=== PATIENT | male | born 1950 | race Two or more races ===

== ENCOUNTER 2017-12-04 03:43 | Emergency (ER) | payer MEDICARE, MEDICAID ==
[~2017-12-04] VITALS: Ht 162.6 cm; Wt 75.3 kg
--- NOTE | 2017-12-04 03:46 | Emergency Room Report ---
History of Present Illness General Chief Complaint: Dyspnea/Respdistress Source: Patient Present Illness HPI Patient is a 67-year-old male presented after increased difficulty breathing. Patient acute onset of symptoms approximately four hours prior to arrival. Patient reports having increased the discomfort with respirations. He had been taking albuterol without any relief.The patient not been vomiting. He reports having increased chest discomfort. Allergies: Coded Allergies: No Known Allergies (Unverified , 12/04/17) Patient History Past Medical History: see triage record Reviewed Nursing Documentation: PMH: Agreed; PSxH: Agreed Nursing Documentation-PMH Hx Hypertension: Yes Hx Asthma: Yes Review of Systems All Other Systems: negative except mentioned in HPI Physical Exam Vital Signs Date Time Temp Pulse Resp B/P (MAP) Pulse Ox O2 Delivery O2 Flow Rate FiO2 12/04/17 03:39 99.0 90 18 163/70 100 Room Air 99.0 Sp02 EP Interpretation: reviewed, normal General Appearance: normal inspection, alert, GCS 15, mild distress Head: atraumatic ENT: normal ENT inspection, hearing grossly normal, normal voice Neck: normal inspection, full range of motion, supple, no bony tend Respiratory: normal inspection, lungs clear, no retraction, wheezing Cardiovascular #1: regular rate, rhythm, no edema Gastrointestinal: normal inspection, normal bowel sounds, non tender, soft, no guarding, no hernia Genitourinary: no CVA tenderness Musculoskeletal: normal inspection, back normal, normal range of motion Neurologic: normal inspection, alert, oriented x3, responsive, equipment analyst III-XII nml as tested, speech normal Psychiatric: normal inspection, judgement/insight normal, mood/affect normal Skin: normal inspection, normal color, no rash Medical Decision Making Diagnostic Impression: Primary Impression: Acute renal failure Additional Impressions: Respiratory distress Acidosis ER Course Patient presented for shortness of breath.Differential included but was not limited to anemia, pneumonia, pneumothorax, myocardial infarction, pericardial effusion, congestive heart failure, acidosis. Because of complexity of patient' s case laboratory testing and imaging studies were ordered.The patient was noted to have the metabolic acidosis with the markedly elevation of the patient' s creatinine. The patient was given breathing treatments as well as IV steroids the patient was noted to have some improvement in his symptoms in terms of his breathing. Patient stated that he had been urinating normally.I informed the patient that he should be admitted to the hospital for further evaluation of his acidosis as well as as medical management of the elevated creatinine and possible dialysis. The patient was advised risk benefits alternatives of leaving AGAINST MEDICAL ADVICE and he indicated understanding and all questions are answered patient still continued want to leave and signed AGAINST MEDICAL ADVICE. Despite risks including but not limited to disability and worsening of current lifestyle. Patient is advised to return if he changes mind. Labs Test 12/04/17 04:14 12/04/17 04:55 White Blood Count 5.6 K/UL (4.8-10.8) Red Blood Count 4.50 M/UL (4.70-6.10) Hemoglobin 13.0 G/DL (14.2-18.0) Hematocrit 38.6 % (42.0-52.0) Mean Corpuscular Volume 86 FL (80-99) Mean Corpuscular Hemoglobin 29.0 PG (27.0-31.0) Mean Corpuscular Hemoglobin Concent 33.8 G/DL (32.0-36.0) Red Cell Distribution Width 11.4 % (11.6-14.8) Platelet Count 104 K/UL (150-450) Mean Platelet Volume 8.5 FL (6.5-10.1) Neutrophils (%) (Auto) 67.9 % (45.0-75.0) Lymphocytes (%) (Auto) 19.0 % (20.0-45.0) Monocytes (%) (Auto) 6.0 % (1.0-10.0) Eosinophils (%) (Auto) 6.1 % (0.0-3.0) Basophils (%) (Auto) 1.0 % (0.0-2.0) Prothrombin Time 11.5 SEC (9.30-11.50) Prothromb Time International Ratio 1.1 (0.9-1.1) Activated Partial Thromboplast Time 30 SEC (23-33) Troponin I 0.002 ng/mL (0.000-0.056) Sodium Level 154 MMOL/L (136-145) Potassium Level 3.5 MMOL/L (3.5-5.1) Chloride Level 95 MMOL/L (98-107) Carbon Dioxide Level 18 MMOL/L (21-32) Anion Gap 41 mmol/L (5-15) Blood Urea Nitrogen 10 mg/dL (7-18) Creatinine 5.9 MG/DL (0.55-1.30) Estimat Glomerular Filtration Rate 9.6 mL/min (>60) Glucose Level 88 MG/DL (74-106) Calcium Level 6.5 MG/DL (8.5-10.1) Total Bilirubin 0.3 MG/DL (0.2-1.0) Aspartate Amino Transf (AST/SGOT) 31 U/L (15-37) Alanine Aminotransferase (ALT/SGPT) 6 U/L (12-78) Alkaline Phosphatase 74 U/L (46-116) Pro-B-Type Natriuretic Peptide 34 pg/mL (0-125) Total Protein 5.8 G/DL (6.4-8.2) Albumin 3.9 G/DL (3.4-5.0) Globulin 1.9 g/dL Albumin/Globulin Ratio 2.1 (1.0-2.7) Serum Alcohol < 3 mg/dL EKG Diagnostic Results Rate: normal Rhythm: NSR ST Segments: no acute changes Rhythm Strip Diag. Results EP Interpretation: yes Rhythm: NSR, no PVC's, no ectopy Last Vital Signs Date Time Temp Pulse Resp B/P (MAP) Pulse Ox O2 Delivery O2 Flow Rate FiO2 12/04/17 03:39 99.0 90 18 163/70 100 Room Air 99.0 Status: unchanged Disposition: AGAINST MEDICAL ADVICE Condition: Serious Rickey Sawyer MD Dec 04, 2017 03:46
[2017-12-04] MEDS ORDERED: Albuterol/Ipratropium 3ml neb HHN ONE (04:00)
[2017-12-04] MEDS ORDERED: Solu-MEDROL 125mg Inj IVP ONE (04:00)
[2017-12-04 04:13] VITALS: BP 163/70
[2017-12-04 04:26] LABS: EOSINOPHILS % (AUTO) 6.1 % (0.0-3.0); HEMATOCRIT 38.6 % (42.0-52.0); MEAN CORPUSCULAR VOLUME 86 FL (80-99); NEUTROPHILS % (AUTO) 67.9 % (45.0-75.0); PLATELET COUNT 104 K/UL (150-450); RED CELL DISTRIBUTION WIDTH 11.4 % (11.6-14.8); WHITE BLOOD COUNT 5.6 K/UL (4.8-10.8)
[2017-12-04 04:40] LABS: INR 1.1 (0.9-1.1)
[2017-12-04 05:29] LABS: ANION GAP 41 mmol/L (5-15); BLOOD UREA NITROGEN 10 mg/dL (7-18); CALCIUM 6.5 MG/DL (8.5-10.1); CARBON DIOXIDE 18 MMOL/L (21-32); CHLORIDE 95 MMOL/L (98-107); CREATININE 5.9 MG/DL (0.55-1.30); POTASSIUM 3.5 MMOL/L (3.5-5.1); SODIUM 154 MMOL/L (136-145)
[2017-12-04] MEDS ORDERED: Albuterol ud Inhalation HHN ONE (05:30)
[2017-12-04] MEDS ORDERED: Isovue-370 150ml vial INJ PRN (05:30)
[2017-12-04 05:34] LABS: ALANINE AMINOTRANSFERASE 6 U/L (12-78); ALBUMIN 3.9 G/DL (3.4-5.0); ALBUMIN/GLOBULIN RATIO 2.1 (1.0-2.7); ALKALINE PHOSPHATASE 74 U/L (46-116); ASPARTATE AMINO TRANSFERASE 31 U/L (15-37); BILIRUBIN,TOTAL 0.3 MG/DL (0.2-1.0)
[2017-12-04 06:56] VITALS: BP 163/70
--- NOTE | 2017-12-04 11:53 | Diagnostic Imaging Report ---
Indication: Shortness of breath Technique: One view of the chest Comparison: none Findings: Lungs and pleural spaces are clear. Heart size is normal. Impression: Negative
== END 2017-12-04 06:59 | disposition left against medical advice (07) ==
LOC: EDBD 03:43 → EMR 03:56
DX: R06.03 Acute respiratory distress (principal); N17.9 Acute kidney failure, unspecified; E87.2 Acidosis; I10 Essential (primary) hypertension; J45.909 Unspecified asthma, uncomplicated
CPT/HCPCS: 36415; 71045; 80053; 83880; 84484; 85025; 85610; 85730; 93005; 94640; 94664; 96374; 99284; G0480; J2930; 80329; 99283; J7620